=== PATIENT | male | born 1985 ===

== ENCOUNTER 2022-02-20 14:40 | Emergency (ER) | payer SELFPAY ==
[2022-02-20] MEDS ORDERED: Sodium Chloride 0.9% 1,000 ML IV ONE ×2 (15:26→17:15)
[2022-02-20] MEDS ORDERED: Ondansetron 4 MG/2 ML SDV IVPUSH ONE ×2 (15:33→17:16)
[2022-02-20] MEDS ORDERED: Ketorolac 30 MG/ML SDV IVPUSH ONE ×2 (15:33→17:16)
[2022-02-20] MEDS: Sodium Chloride 0.9% 10 ML Syringe FLUSH PRN ×2 (15:41→16:14)
[2022-02-20] MEDS: Sodium Chloride 0.9% 2.5 ML Syringe FLUSH PRN ×2 (15:41→16:14)
[2022-02-20 15:48] LABS: CARBON DIOXIDE,CO2 26.3 mmol/L (21.0-32.0); POTASSIUM,K 3.2 mmol/L (3.5-5.1)
[2022-02-20 16:14] LABS: CORONAVIRUS COVID-19 NAA NEGATIVE (NEGATIVE); INFLUENZA A NAA NEGATIVE (NEGATIVE); INFLUENZA B NAA NEGATIVE (NEGATIVE)
[2022-02-20] MEDS ORDERED: Tamsulosin 0.4 MG Cap.ER PO ONE (17:15)
[2022-02-20] MEDS ORDERED: fentaNYL 50 MCG/ML SDV IVPUSH ONE (17:16)
== END 2022-02-20 18:20 | disposition home or self-care (01) ==
LOC: MW.ED 14:40
DX: N23 Unspecified renal colic (principal); Z79.899 Other long term (current) drug therapy; Z20.822 Contact with and (suspected) exposure to COVID-19
CPT/HCPCS: 0240U; 36415; 74176; 80053; 81001; 85025; 96374; 96375; 96376; 99284; A9270; J1885; J2405; J3010; J3490; J7030